=== PATIENT | male | born 1985 | race Caucasian/White ===

== ENCOUNTER 2018-04-02 22:16 | Emergency (ER) | payer BC ==
--- NOTE | 2018-04-02 23:11 | RAD ---
RIGHT ANKLE THREE VIEWS: 04/02/18 COMPARISON: 03/21/13. HISTORY: Rolled ankle while helping someone today. FINDINGS: Ankle mortise is intact. Joint space is preserved. No fracture. There is lateral soft tissue swelling . IMPRESSION: Lateral soft tissue swelling. No fracture. POS: [facility]
== END 2018-04-02 23:30 | disposition home or self-care (01) ==
LOC: ERS 22:16
DX: S93.401A Sprain of unspecified ligament of right ankle, initial encounter (principal); F32.9 Major depressive disorder, single episode, unspecified; Z79.899 Other long term (current) drug therapy; X50.1XXA Overexertion from prolonged static or awkward postures, initial encounter; Y93.02 Activity, running; Y92.488 Other paved roadways as the place of occurrence of the external cause